=== PATIENT | female | born 2000 | race Caucasian/White ===

== ENCOUNTER 2018-12-04 01:50 | Emergency (ER) | payer BC, SELFPAY ==
[2018-12-04 01:51] VITALS: BP 127/87; PULSE 120; RESP 16; TEMP 37.1; O2SAT 100; BMI 29.3
[2018-12-04 02:47] LABS: Absolute Lymphocyte Count 3.74 X10^3/ul (0.83-4.51); Absolute Neutrophil Count 4.2 X10^3/uL (2.0-7.7); Basophil# 0.04 X10^3/uL; Basophil% 0.4 % (0-1); Eosinophil# 0.36 X10^3/uL; Hematocrit 37.7 % (37-47); Hemoglobin 12.5 g/dl (12.0-15.0); Lymphocyte # 3.74 X10^3/ul (4.0); Lymphocyte % 41.7 % (19-41); Mean Corp Hgb Conc 33.2 g/gl (32-36); Mean Corpuscular Hgb 28.7 pg (27.0-32.0); Mean Corpuscular Volume 86.5 fL (81-99); Mean Platelet Vol. 11.6 fl (6.2-12.0); Monocyte# 0.61 X10^3/uL; Monocyte% 6.8 % (0-10); Platelet Count 183 K/mm3 (150-450); RBC Distribution Width CV 12.8 % (11.6-14.6); RBC Distribution Width SD 40.9 fl (35.1-43.9); Red Blood Count 4.36 M/mm3 (4.2-5.4)
[2018-12-04 02:55] LABS: POSITIVE COUNT NO; POSITIVE DIFFERENTIAL NO; POSITIVE MORPHOLOGY NO
[2018-12-04 03:24] LABS: AST(SGOT) 20 U/L (15-37); Alanine Aminotransfer ALT/SGPT 24 U/L (13-56); Albumin, Serum 3.8 g/dL (3.2-5.0); Alkaline Phosphatase 91 U/L (45-117); Anion Gap 11 (5-15); BUN 17 mg/dL (7-18); BUN/Creat Ratio 21.2 RATIO (10-20); Calcium,Total 8.8 mg/dL (8.5-10.1); Chloride 109 mmol/L (98-107); EST Glomerular Filtration Rate 97 mL/min (>60); Est Glom Filt Rate - Afr Amer 117 mL/min (>60); Estimated Creatinine Clearance 105.01 ml/min; Globulin 3.7 g/dL (2.2-4.2); Glucose 93 mg/dL (74-106); Lipase 116 U/L (73-393); Potassium 3.3 mmol/L (3.5-5.1); Protein, Total 7.5 g/dL (6.4-8.2); Sodium Level 143 mmol/L (136-145)
--- NOTE | 2018-12-04 03:26 | ED.VISSUMM ---
- ER Visit Summary Date of Service: 12/04/18 Chief Complaint: Abdominal pain History of Present Illness: The patient is a 18 F who presents with abdominal pain. Is been going on for about 4-5 days. There were no acute changes tonight. Patient states that her mother made her come in to be evaluated. Mother states that she was in obvious pain when she got home from work. The patient actually states that right now she only has mild pain. Her pain is all isolated to the right upper quadrant. It is aching in nature. It is worse with standing for long period of time or reaching up above her head. She reports nausea without vomiting. She had some diarrhea several days ago after taking laxatives for constipation but has not had any diarrhea and at least 2 days. No fevers. No vomiting. Physical Examination: Heart rate 120 vitals otherwise normal Moist mucous membranes Resting comfortably no distress Heart regular rate and rhythm on auscultation Lungs are clear to auscultation Abdomen soft there is no reproducible tenderness she is nondistended no guarding no rebound no Pacheco sign Test Results: CBC CMP lipase notable only for potassium 3.3. Emergency Department Course and Treatment: Patient had no reproducible pain here. She has a benign abdominal exam. Given normal laboratory studies I do not believe any further emergent workup is necessary patient advised to follow-up as an outpatient should symptoms continue. She understands to return for new or worsening symptoms and was discharged home. Treatment Plan: [] Disposition: Discharge Impression: Right upper quadrant abdominal pain This note was generated with [employer] dictation software. It may contain incorrect words, spelling, and punctuation that were not noted in review of the chart prior to signing ED Disposition - Plan for ED Patient: Referrals: Karthikeyan Soriano MD [Primary Care Provider] -
--- NOTE | 2018-12-04 03:29 | ED.DCSUM_ITS ---
- ER Visit Summary Date of Service: 12/04/18 Chief Complaint: Abdominal pain History of Present Illness: The patient is a 18 F who presents with abdominal pain. Is been going on for about 4-5 days. There were no acute changes tonight. Patient states that her mother made her come in to be evaluated. Moth er states that she was in obvious pain when she got home from work. The patient actually states that right now she only has mild pain. Her pain is all isolated to the right upper quadrant. It is aching in nature. It is worse with standing for long period of time or reaching up above her head. She reports nausea without vomiting. She had some diarrhea several days ago after taking laxatives for constipation but has not had any diarrhea and at least 2 days. No fevers. No vomiting. Physical Examination: Heart rate 120 vitals otherwise normal Moist mucous membranes Resting comfortably no distress Heart regular rate and rhythm on auscultation Lungs are clear to auscultation Abdomen soft there is no reproducible tenderness she is nondistended no guarding no rebound no Pacheco sign Test Results: CBC CMP lipase notable only for potassium 3.3. Emergency Department Course and Treatment: Patient had no reproducible pain here. She has a benign abdominal exam. Given normal laboratory studies I do not believe any further emergent workup is necessary patient advised to follow- up as an outpatient should symptoms continue. She understands to return for new or worsening symptoms and was discharged home. Treatment Plan: [] Disposition: Discharge Impression: Right upper quadrant abdominal pain This note was generated with [employer] dictation software. It may contain incorrect words, spelling, and punctuation that were not noted in review of the chart prior to signing ED Disposition - Plan for ED Patient: Referrals: Karthikeyan Soriano MD [Primary Care Provider] -
--- NOTE | 2018-12-04 03:29 | ED.DEP ---
ED Disposition - Plan for ED Patient: Instructions: ED Abdominal Pain Unkn Cause Referrals: Karthikeyan Soriano MD [Primary Care Provider] -
[2018-12-04 03:35] VITALS: BP 120/66; PULSE 110; RESP 16; O2SAT 98
== END 2018-12-04 03:35 | disposition home or self-care (01) ==
PROVIDERS: Emergency Provider Emergency Medicine; Family Provider Family Medicine; PCP Family Medicine
DX: R10.11 Right upper quadrant pain (principal); R19.7 Diarrhea, unspecified; R11.0 Nausea; K59.00 Constipation, unspecified; J45.909 Unspecified asthma, uncomplicated
CPT/HCPCS: 36415; 80053; 83690; 85025; 99282

== ENCOUNTER 2020-06-02 20:01 | Emergency (ER) | payer BC, SELFPAY ==
[2020-06-02 20:01] VITALS: BP 133/87; PULSE 115; RESP 16; TEMP 36.7; O2SAT 98; BMI 28.5
--- NOTE | 2020-06-02 20:17 | CT_ITS ---
STUDY: CT ABDOMEN AND PELVIS WITH CONTRAST REASON FOR EXAM: Female, 19 years old. RLQ PAIN WITH FEVER AND N/V RADIATION DOSAGE (If Supplied By Facility): CTDIvol = ( 11.62 ) mGy, DLP = ( 640.20 ) mGycm TECHNIQUE: Transaxial images were obtained from the dome of the diaphragm to the symphysis pubis without oral contrast. Oral and amp; IV Breeza and amp; 100mL Isovue-370 was administered. Sagittal and coronal images were reconstructed. Individualized dose optimization techniques were used for this CT. COMPARISON: None. FINDINGS: The visualized lung bases are unremarkable. The visualized portions of the heart are within normal limits. Normal liver. The gallbladder is contracted. Normal spleen. Normal pancreas. Normal bilateral adrenal glands. Normal right kidney. Hypoattenuating region within the left renal lateral cortex is noted measuring 1.5 cm consistent with simple cyst. Normal visualized stomach. Normal small intestine. Normal colon. The appendix is visualized and appears normal. Normal abdominal aorta. Normal inferior vena cava. Normal retroperitoneum. Normal urinary bladder. There is a right adnexal hypoattenuating cyst measuring 4.7 x 3.7 cm consistent with large ovarian cyst. Normal abdominal wall. Normal osseous structures. CT/Abdomen/Pelvis WITH Contrast IMPRESSION: 1. No evidence of acute intra-abdominal process or focal inflammation. Normal appendix. 2. Right adnexal simple appearing ovarian cyst possibly causing patient''s symptomology. Further evaluation with pelvic ultrasound may be obtained for further characterization. Electronically Signed: Glen Whitmore DO at 22:35 EDT , Service support ,
[2020-06-02] MEDS: 0.9% Normal Saline 1,000 ML 1000 ML IV (20:33)
[2020-06-02 20:37] LABS: White Blood Cells 0 SEEN /hpf (0-5)
[2020-06-02 20:39] LABS: Absolute Lymphocyte Count 2.71 X10^3/uL (0.83-4.51); Absolute Neutrophil Count 6.3 X10^3/uL (2.0-7.7); Basophil# 0.06 X10^3/uL; Basophil% 0.6 % (0-1); Eosinophil# 0.32 X10^3/uL; Eosinophils% 3.2 % (0-5); Hematocrit 39.8 % (37-47); Hemoglobin 13.2 g/dL (12.0-15.0); Lymphocyte # 2.71 X10^3/ul (4.0); Lymphocyte % 27.2 % (19-41); Mean Corp Hgb Conc 33.2 g/dL (32-36); Mean Corpuscular Hgb 29.3 pg (27.0-32.0); Mean Corpuscular Volume 88.4 fL (81-99); Mean Platelet Vol. 12.2 fl (6.2-12.0); Monocyte# 0.53 X10^3/uL; Monocyte% 5.3 % (0-10); NRBC Flagged by Analyzer 0 % (0-5); Neutrophil # 6.34 X10^3/uL (2.7-7.7); Neutrophil % 63.5 % (47-70); Platelet Count 218 K/mm3 (150-450); RBC Distribution Width CV 12.5 % (11.6-14.6); RBC Distribution Width SD 40.4 fl (35.1-43.9)
[2020-06-02 20:41] LABS: Color, Urine Yellow (Yellow); Glucose, Dipstick Normal (Normal); Ketone-Dipstick 15 mg/dl (Negative); Leukocyte Esterase-Dipstick Negative /ul (Negative); Nitrite-Dipstick Negative (Negative); Occult Blood-Urine 10 /ul (Negative); Protein-Dipstick 15 mg/dl (Negative); Urine Bilirubin Dipstick Negative (Negative); Urine Clarity Sl. Cloudy (Clear); Urine Urobilinogen 1 mg/dl (Normal)
[2020-06-02 20:48] LABS: Bacteria RARE /hpf (None Seen); Mucous, Urine 2+ /hpf (<or=2+); Red Blood Cells-Urine 0-5 SEEN /hpf (0-5); Squamous Epithelial Cells - UA 0-5 SEEN /hpf (5-10)
[2020-06-02 20:49] LABS: Internal QC Validated? YES +Cl - CLEAR BKGD; Pregnancy, Serum, hCG Quali. NEGATIVE Negative
[2020-06-02 20:53] LABS: Anion Gap 7 (5-15); BUN 9 mg/dL (7-18); BUN/Creat Ratio 10.4 RATIO (10-20); Calcium,Total 8.8 mg/dL (8.5-10.1); Chloride 112 mmol/L (98-107); Creatinine, Serum 0.86 mg/dL (0.55-1.02); EST Glomerular Filtration Rate 88 mL/min (>60); Est Glom Filt Rate - Afr Amer 106 mL/min (>60); Estimated Creatinine Clearance 96.87 ml/min; Glucose 115 mg/dL (74-106); Potassium 3.6 mmol/L (3.5-5.1); Sodium Level 141 mmol/L (136-145)
--- NOTE | 2020-06-02 21:02 | ED.VISSUMM ---
- ER Visit Summary Date of Service: 06/02/20 Chief Complaint: Abdominal pain History of Present Illness: The patient is a [address] Karthikeyan Mcclure. She reports that she has right lower quad abdominal pain that began 2 days ago. Describes it as an aching pain is 7-10 at worst and 6 out of 10 currently. Is worsened by movement and walking. Relieved by remaining still and ibuprofen. She is been nauseated for the past 2 days. She is vomited twice. No blood in her emesis. She is having diarrhea twice today. No blood in her stools or black tarry stools. No dysuria or frequency. She began her period today. She denies any vaginal discharge. Physical Examination: Vitals: Stable. Afebrile. General: Well-nourished and well-developed. Head: Normocephalic atraumatic. Neck: Supple, no lymphadenopathy. No JVD. Nontender. Cardiovascular: Regular rate and rhythm. No murmurs. Respiratory: No respiratory distress. Clear to auscultation bilaterally. Abdominal: Soft, moderate tense palpation right lower quadrant, nondistended, normal bowel sounds. No guarding, rebound, or peritoneal signs. Back: Nontender. Extremities: Nontender, no edema. Skin: Normal color, no rash. Neurologic: Alert and oriented ?3. Cranial nerves II through XII are intact. Normal strength and sensation. Psych: Normal affect. Test Results: CBC is normal. Chem-7 shows a chloride of 112 and glucose 115. UA is negative for infection. test is negative. Clinical Impression(s) from Imaging Studies Abdomen/Pelvis CT 06/02/20 20:17 IMPRESSION: 1. No evidence of acute intra-abdominal process or focal inflammation. Normal appendix. 2. Right adnexal simple appearing ovarian cyst possibly causing patient''s symptomology. Further evaluation with pelvic ultrasound may be obtained for further characterization. Electronically Signed: Glen Whitmore DO at 22:35 EDT , Service support , Emergency Department Course and Treatment: Patient refused pain or nausea medications. She was given a liter normal saline. She is resting comfortably. Treatment Plan: The patient does not appear to have ovarian torsion. She is refused pain medications and is resting comfortably. I do not think that calling an ultrasound tonight is warranted. She will be discharged with instructions to follow-up with Dr. Wild in 5 to 7 days if not improving. Return to emergency department for worsening pain or any other concerns. Disposition: To home in improved and stable condition. Impression: 1. Right ovarian cyst. This note was generated with [facility] dictation software. It may contain incorrect words, spelling, and punctuation that were not noted in review of the chart prior to signing ED Disposition - Plan for ED Patient: Disposition: Home or Assisted Living Instructions: ED Cyst Ovarian Referrals: Chris Wild MD [STAFF PHYSICIAN] - 1 Week if not improving
[2020-06-02 22:35] VITALS: BP 120/81; PULSE 96; RESP 16; O2SAT 98
== END 2020-06-02 23:00 | disposition home or self-care (01) ==
LOC: ED 20:49
PROVIDERS: Emergency Provider Emergency Medicine; PCP Family Medicine
DX: N83.201 Unspecified ovarian cyst, right side (principal)
CPT/HCPCS: 74177; 80048; 81001; 84703; 85025; 99283; J7030; Q9967; A4216

== ENCOUNTER 2020-06-11 22:36 | Emergency (ER) | payer BC, SELFPAY ==
[2020-06-11 22:37] VITALS: BP 109/79; PULSE 114; RESP 18; TEMP 36.8; O2SAT 98; BMI 28.4
[2020-06-11 23:26] LABS: Absolute Lymphocyte Count 2.27 X10^3/uL (0.83-4.51); Absolute Neutrophil Count 5.9 X10^3/uL (2.0-7.7); Basophil# 0.06 X10^3/uL; Basophil% 0.6 % (0-1); Eosinophil# 0.38 X10^3/uL; Eosinophils% 4.1 % (0-5); Hematocrit 38.9 % (37-47); Hemoglobin 12.6 g/dL (12.0-15.0); Lymphocyte # 2.27 X10^3/ul (4.0); Lymphocyte % 24.6 % (19-41); Mean Corp Hgb Conc 32.4 g/dL (32-36); Mean Corpuscular Hgb 28.6 pg (27.0-32.0); Mean Corpuscular Volume 88.4 fL (81-99); Mean Platelet Vol. 12.1 fl (6.2-12.0); Monocyte# 0.58 X10^3/uL; Monocyte% 6.3 % (0-10); NRBC Flagged by Analyzer 0 % (0-5); Neutrophil # 5.93 X10^3/uL (2.7-7.7); Neutrophil % 64.2 % (47-70); Platelet Count 214 K/mm3 (150-450); RBC Distribution Width CV 12.5 % (11.6-14.6); RBC Distribution Width SD 40.7 fl (35.1-43.9); White Blood Count 9.2 K/mm3 (4.4-11.0)
[2020-06-11 23:36] LABS: Internal QC Validated? YES +Cl - CLEAR BKGD; Pregnancy, Serum, hCG Quali. NEGATIVE Negative
[2020-06-11 23:37] VITALS: RESP 16
[2020-06-11 23:40] LABS: Alcohol, Blood (Medical)-Serum < 3.0 mg/dL
[2020-06-11 23:41] LABS: Anion Gap 6 (5-15); BUN 13 mg/dL (7-18); BUN/Creat Ratio 16.9 RATIO (10-20); Calcium,Total 9.1 mg/dL (8.5-10.1); Chloride 112 mmol/L (98-107); Creatinine, Serum 0.77 mg/dL (0.55-1.02); EST Glomerular Filtration Rate 100 mL/min (>60); Est Glom Filt Rate - Afr Amer 121 mL/min (>60); Estimated Creatinine Clearance 108.19 ml/min; Glucose 95 mg/dL (74-106); Sodium Level 140 mmol/L (136-145)
[2020-06-11 23:48] LABS: Amphetamine Urine VISTA NEGATIVE (<1000 ng/mL); Barbiturate Urine VISTA NEGATIVE (< 200 ng/mL); Benzodiazepine Urine VISTA NEGATIVE (< 200 ng/mL); Cocaine Urine VISTA NEGATIVE (< 300 ng/mL); Ecstacy Urine VISTA POSITIVE (< 500 ng/mL); Methadone Urine VISTA NEGATIVE (< 300 ng/mL); PCP Urine VISTA NEGATIVE (< 25 ng/mL); THC Urine VISTA NEGATIVE (< 50 ng/mL); Vista UDS pH Range 5
[2020-06-12] VITALS (12 sets, daily range): BP systolic 115–136; BP diastolic 65–80; PULSE 72–106; RESP 14–20; O2SAT 98–99
--- NOTE | 2020-06-12 00:10 | NURSING ---
TALKED OT GLORIA FROM [facility] AT [phone] AND FAXED HER DEMO AND LABS
--- NOTE | 2020-06-12 03:43 | ED.VISSUMM ---
- ER Visit Summary Date of Service: 06/12/20 Chief Complaint: Suicidal ideation History of Present Illness: The patient is a [address] Karthikeyan Mcclure. The patient was brought by police who reports that the patient's mother, father, and boyfriend are concerned that she is going to commit suicide. Tonight she told them that she was going to walk into traffic. She then took her keys and tried to leave telling them he will never see me again. They became concerned and called police. Mother reports that patient has had increasing depression and suicidal thoughts since the onset of coronavirus. Patient does admit to anxiety and depression associated with this. She reports that she made a plan for seeing a psychiatrist in 3 days. She denies any auditory hallucinations. She denies any suicidal plan at this time. Physical Examination: Vitals: Stable. Afebrile. General: Well-nourished and well-developed. Head: Normocephalic atraumatic. Neck: Supple, no lymphadenopathy. No JVD. Nontender. Cardiovascular: Regular rate and rhythm. No murmurs. Respiratory: No respiratory distress. Clear to auscultation bilaterally. Abdominal: Soft, nontender, nondistended, normal bowel sounds. No guarding, rebound, or peritoneal signs. Back: Nontender. Extremities: Nontender, no edema. Skin: Normal color, no rash. Neurologic: Alert and oriented ?3. Cranial nerves II through XII are intact. Normal strength and sensation. Mental status exam: Patient appears their stated age. Good posture and grooming. Good eye contact. Normal rate, volume, and latency of speech. No suicidal or homicidal ideation. No auditory or visual hallucinations. Flow of thought is logical. Insight and judgment is fair. Patient is very labile. Test Results: CBC is normal. Chem-7 shows a quite a 112. test is negative. Talk screen shows methamphetamines. Alcohol is negative. Emergency Department Course and Treatment: I discussed with the patient the results of the talk screen. She is adamant that she does not use methamphetamine. The only medication she is on her ibuprofen and control pills. It does not appear that these will cause a false positive test for methamphetamine. I had a prolonged discussion with the patient and she is really not forthcoming about her depression or suicidal ideation. I talked with the public safety police who was concerned about the fact that the patient's mother, father, and boyfriend all witnessed this. Treatment Plan: Patient was discussed with the counseling center. They have interviewed her over the phone. She was not forthcoming with them either. I think the patient is at significant risk for actually hurting herself if she goes home. She is in the process of being admitted to a psychiatric facility. Disposition: Pending Impression: 1. Suicidal ideation. This note was generated with [employer] dictation software. It may contain incorrect words, spelling, and punctuation that were not noted in review of the chart prior to signing ED Disposition - Plan for ED Patient: Referrals: Karthikeyan Soriano MD [Primary Care Provider] -
--- NOTE | 2020-06-12 10:22 | CM.ED ---
Social Work Telephone call to Niru, Michelle. Michelle states to be working on patient case. No updated on pending facility or acceptance. Updated medical team. Steven Garcia MSW, JUAN A
--- NOTE | 2020-06-12 10:43 | CM.ED ---
Social Work Telephone call from Michelle Marrufo. Patient has been accepted at [facility]. Patient accepted by Dr. Hurtado. Nursed to call report to [phone]. Patient admitted to the 1500 unit. Michelle requesting for pink slip to be faxed to [facility] at: [phone]. Updated medical team and patient. Steven Garcia MSW, JUAN A
--- NOTE | 2020-06-12 11:05 | CM.ED ---
Social Work [place] faxed to [facility]. Nursing staff to update patient mother on patient disposition. Steven Garcia MSW, JUAN A
== END 2020-06-12 11:26 ==
PROVIDERS: Emergency Provider Emergency Medicine; PCP Family Medicine
DX: R45.851 Suicidal ideations (principal); F32.9 Major depressive disorder, single episode, unspecified; F41.9 Anxiety disorder, unspecified
CPT/HCPCS: 80048; 80307; 80320; 84703; 85025; 99284; G0480